=== PATIENT | male | born 1950 | race Caucasian/White ===

== ENCOUNTER 2018-07-06 19:41 | Emergency (ER) | payer OTHER ==
[2018-07-06 20:40] LABS: Absolute Lymphocytes (CBC) 2.2 K/uL (0.7-4.9); Absolute Monocytes 0.7 K/uL (0.1-1.3); Absolute Neutrophil 5.2 K/uL (1.8-8.0); Basophils % 0.9 % (0-1.3); Eosinophils % 1.2 % (0-4.4); Hematocrit 40.9 % (39.6-49.0); Lymphocytes % 26.8 % (15.3-44.8); MCH 30.1 pg (27.0-35.0); MCV 87.9 fL (80-100); MPV 7.4 fL (7.6-11.3); Monocytes % 8.8 % (3.3-12.3); RBC Red Blood Cell Count 4.66 M/uL (4.33-5.43)
[2018-07-06 20:58] LABS: Albumin 3.5 g/dL (3.4-5.0); Bilirubin Direct 0.1 mg/dL (0-0.2); Bilirubin Total 0.3 mg/dL (0.2-1.0); Potassium 4.1 mmol/L (3.5-5.1); Protein, Total 7.1 g/dL (6.4-8.2)
--- NOTE | 2018-07-06 21:34 | ER ---
Nurse's Notes [facility] Name: Korey Jeffers Age: 68 yrs Sex: Male : 1950 Arrival Date: 07/06/2018 Time: 19:44 Bed 8 Private MD: Diagnosis: Uncontrolled Hypertension;medication Non-compliance Presentation: 07/06 19:50 Presenting complaint: Patient states: that he went to the eye doctor today for pre-op fc for cataract surg and was told his bp was too high. It was 200/87. Pt goes to [place] and has no regular family dr. Has taken no medications in 2 years because he could not afford them. Transition of care: patient was not received from another setting of care. Onset of symptoms was July 06, 2018. Risk Assessment: Do you want to hurt yourself or someone else? Patient reports no desire to harm self or others. Initial Sepsis Screen: Does the patient meet any 2 criteria? No. Patient's initial sepsis screen is negative. Does the patient have a suspected source of infection? No. Patient's initial sepsis screen is negative. Care prior to arrival: None. 19:50 Method Of Arrival: Ambulatory fc 19:50 Acuity: JANICE 3 fc Historical: - Allergies: 20:03 No Known Allergies; fc - Home Meds: 20:03 None [Active]; fc - PMHx: 20:03 Hypertension; High Cholesterol; Myocardial infarction; Cataracts; fc - PSHx: 20:03 CABG; fc - Immunization history:: Last tetanus immunization: unknown, Flu vaccine is up to date. - Social history:: Smoking status: Patient uses tobacco products, smokes one pack cigarettes per day. Patient uses alcohol, occasionally. - Ebola Screening: : Patient negative for fever greater than or equal to 101.5 degrees Fahrenheit, and additional compatible Ebola Virus Disease symptoms Patient denies exposure to infectious person Patient denies travel to an Ebola-affected area in the 21 days before illness onset. - Family history:: not pertinent. - Hospitalizations: : No recent hospitalization is reported. Screenin:50 Abuse screen: Denies threats or abuse. Nutritional screening: No deficits noted. fc Tuberculosis screening: No symptoms or risk factors identified. Fall Risk None identified. Assessment: 20:02 General: Appears in no apparent distress. slender, well groomed, Behavior is calm, bb cooperative. Pain: Denies pain. Neuro: Level of Consciousness is awake, alert, obeys commands, Oriented to person, place, time, situation. Cardiovascular: Heart tones S1 S2 present Capillary refill < 3 seconds Patient's skin is warm and dry. Pulses are all present. Edema is absent. Respiratory: Airway is patent Respiratory effort is even, unlabored, Respiratory pattern is regular, Breath sounds are clear bilaterally. GI: No deficits noted. No signs and/or symptoms were reported involving the gastrointestinal system. Derm: Skin is pink, warm \T\ dry. Musculoskeletal: Circulation, motion, and sensation intact. 21:50 Reassessment: No changes from previously documented assessment. Patient and/or family tl1 updated on plan of care and expected duration. Pain level reassessed. Patient is alert, oriented x 3, equal unlabored respirations, skin warm/dry/pink. prescriptions discussed. Patient verbalized understanding. Vital Signs: 19:50 BP 196 / 107; Pulse 89; Resp 18; Temp 99.1(O); Pulse Ox 97% on R/A; Weight 68.04 kg fc (R); Height 5 ft. 7 in. (170.18 cm) (R); Pain 0/10; 20:52 BP 167 / 94; Pulse 84; Resp 18; Pulse Ox 97% on R/A; Pain 0/10; tl1 21:49 BP 180 / 91; Pulse 84; Resp 17; Temp 98.8; Pulse Ox 100% ; Pain 0/10; tl1 19:50 Body Mass Index 23.49 (68.04 kg, 170.18 cm) Kwame Coma Score: 20:02 Eye Response: spontaneous(4). Verbal Response: oriented(5). Motor Response: obeys bb commands(6). Total: 15. ED Course: 19:44 Patient arrived in ED. ds1 19:50 Arm band placed on Patient placed in an exam room, on a stretcher. fc 19:50 Patient has correct armband on for positive identification. Placed in gown. Bed in low fc position. Call light in reach. 19:57 Konrad Herrera MD is Attending Physician. wa 20:01 Tosha Mendez RN is Primary Nurse. bb 20:01 Triage completed. fc 20:02 personnel monitor on. Pulse ox on. NIBP on. Warm blanket given. bb 20:40 No provider procedures requiring assistance completed. Inserted saline lock: 20 gauge tl1 in right antecubital area, using aseptic technique. Blood collected. 21:50 IV discontinued, intact, bleeding controlled, No redness/swelling at site. Pressure tl1 dressing applied. Administered Medications: No medications were administered Outcome: 21:33 Discharge ordered by . jasmin 21:51 Discharged to home ambulatory, with family. tl1 21:51 Condition: good 21:51 Discharge instructions given to patient, family, Instructed on discharge instructions, follow up and referral plans. medication usage, Demonstrated understanding of instructions, follow-up care, medications, Prescriptions given X 4. 21:52 Patient left the ED. tl1 Signatures: Zandra Novoa RN RN Nancy Sparks ds1 Tosha Mendez RN RN Nimo Fulton RN RN tl1 Konrad Herrera MD MD wa
--- NOTE | 2018-07-06 21:34 | EDPHYS ---
Physician Documentation [facility] Name: Korey Jeffers Age: 68 yrs Sex: Male : 1950 Arrival Date: 07/06/2018 Time: 19:44 Bed 8 Private MD: ED Physician Konrad Herrera HPI: 07/06 21:25 This 68 yrs old Male presents to ER via Ambulatory with complaints of High mt Blood Pressure. 21:25 The patient has elevated blood pressure and discovered this at a physician's office, mt and sent to the emergency department for evaluation, h/o HTN. has not taken any meds since 2 yrs. states [facility] cannot afford meds. denies RANDLE, dizziness, CP, SOB, extremity swelling or blood in urine. was told to get checked when went for screen with the eye doctor for cataract surgery. wouldn't even had come if his son did not drag him here. states he feels fine. denies all ROS. Onset: The symptoms/episode began/occurred many years. Modifying factors: The symptoms are aggravated by none, The symptoms are alleviated by none. Associated signs and symptoms: The patient has no apparent associated signs or symptoms. Severity of symptoms: At its worst the blood pressure was 200 mm Hg, in the emergency department the blood pressure is 167/94. The patient has experienced similar episodes in the past, h/o HN. non-compliant with his meds. The patient has been recently seen by a physician: [facility]. Historical: - Allergies: 20:03 No Known Allergies; fc - Home Meds: 20:03 None [Active]; fc - PMHx: 20:03 Hypertension; High Cholesterol; Myocardial infarction; Cataracts; fc - PSHx: 20:03 CABG; fc - Immunization history:: Last tetanus immunization: unknown, Flu vaccine is up to date. - Social history:: Smoking status: Patient uses tobacco products, smokes one pack cigarettes per day. Patient uses alcohol, occasionally. - Ebola Screening: : Patient negative for fever greater than or equal to 101.5 degrees Fahrenheit, and additional compatible Ebola Virus Disease symptoms Patient denies exposure to infectious person Patient denies travel to an Ebola-affected area in the 21 days before illness onset. - Family history:: not pertinent. - Hospitalizations: : No recent hospitalization is reported. ROS: 21:30 Constitutional: Negative for fever, chills, and weight loss, Eyes: Negative for injury, wa pain, redness, and discharge, ENT: Negative for injury, pain, and discharge, Neck: Negative for injury, pain, and swelling, Cardiovascular: Negative for chest pain, palpitations, and edema, Respiratory: Negative for shortness of breath, cough, wheezing, and pleuritic chest pain, Abdomen/GI: Negative for abdominal pain, nausea, vomiting, diarrhea, and constipation, Back: Negative for injury and pain, : Negative for injury, bleeding, discharge, and swelling, MS/Extremity: Negative for injury and deformity, Skin: Negative for injury, rash, and discoloration, Neuro: Negative for headache, weakness, numbness, tingling, and seizure, Psych: Negative for depression, anxiety, suicide ideation, homicidal ideation, and hallucinations. 21:30 All other systems are negative. Exam: 21:30 Constitutional: This is a well developed, well nourished patient who is awake, alert, wa and in no acute distress. Head/Face: Normocephalic, atraumatic. Eyes: Pupils equal round and reactive to light, extra-ocular motions intact. Lids and lashes normal. Conjunctiva and sclera are non-icteric and not injected. Cornea within normal limits. Periorbital areas with no swelling, redness, or edema. ENT: Nares patent. No nasal discharge, no septal abnormalities noted. Tympanic membranes are normal and external auditory canals are clear. Oropharynx with no redness, swelling, or masses, exudates, or evidence of obstruction, uvula midline. Mucous membranes moist. Neck: Trachea midline, no thyromegaly or masses palpated, and no cervical lymphadenopathy. Supple, full range of motion without nuchal rigidity, or vertebral point tenderness. No Meningismus. Chest/axilla: Normal chest wall appearance and motion. Nontender with no deformity. No lesions are appreciated. Cardiovascular: Regular rate and rhythm with a normal S1 and S2. No gallops, murmurs, or rubs. Normal PMI, no JVD. No pulse deficits. Respiratory: Lungs have equal breath sounds bilaterally, clear to auscultation and percussion. No rales, rhonchi or wheezes noted. No increased work of breathing, no retractions or nasal flaring. Abdomen/GI: Soft, non-tender, with normal bowel sounds. No distension or tympany. No guarding or rebound. No evidence of tenderness throughout. Back: No spinal tenderness. No costovertebral tenderness. Full range of motion. Skin: Warm, dry with normal turgor. Normal color with no rashes, no lesions, and no evidence of cellulitis. MS/ Extremity: Pulses equal, no cyanosis. Neurovascular intact. Full, normal range of motion. Neuro: Awake and alert, GCS 15, oriented to person, place, time, and situation. Cranial nerves II-XII grossly intact. Motor strength 5/5 in all extremities. Sensory grossly intact. Cerebellar exam normal. Normal gait. Psych: Awake, alert, with orientation to person, place and time. Behavior, mood, and affect are within normal limits. Vital Signs: 19:50 BP 196 / 107; Pulse 89; Resp 18; Temp 99.1(O); Pulse Ox 97% on R/A; Weight 68.04 kg fc (R); Height 5 ft. 7 in. (170.18 cm) (R); Pain 0/10; 20:52 BP 167 / 94; Pulse 84; Resp 18; Pulse Ox 97% on R/A; Pain 0/10; tl1 21:49 BP 180 / 91; Pulse 84; Resp 17; Temp 98.8; Pulse Ox 100% ; Pain 0/10; tl1 19:50 Body Mass Index 23.49 (68.04 kg, 170.18 cm) Kwame Coma Score: 20:02 Eye Response: spontaneous(4). Verbal Response: oriented(5). Motor Response: obeys bb commands(6). Total: 15. MDM: 19:57 Patient medically screened. mt 21:31 Differential diagnosis: HTN. quit his meds 2 yrs ago. smokes cigs. has not seen a doc wa in several months. will check kidney fxn. will re-start his meds and give close f/u. no indication for STAT reduction in BP. Data reviewed: vital signs, nurses notes. Test interpretation: by ED physician or midlevel provider: nml cbc. nml CMP. 07/06 20:17 Order name: Basic Metabolic Panel; Complete Time: 21: mt 07/06 20:17 Order name: CBC with Diff; Complete Time: 21:07 mt 07/06 20:17 Order name: SIDDHARTHA's; Complete Time: : mt Administered Medications: No medications were administered Disposition: 07/06/18 21:33 Discharged to Home. Impression: Uncontrolled Hypertension, medication Non-compliance. - Condition is Stable. - Discharge Instructions: Hypertension, [id number]. - Prescriptions for Lisinopril 10 mg Oral Tablet - take 1 tablet by ORAL route once daily; 90 tablet. Hydrochlorothiazide 12.5 mg Oral Capsule - take 1 tablet by ORAL route once daily; 90 tablet. Metoprolol Tartrate 25 mg Oral Tablet - take 1 tablet by ORAL route 2 times per day with a meal; 180 tablet. simvastatin 20 mg Oral tablet - take 1 tablet by ORAL route once daily in the evening; 90 tablet. - Medication Reconciliation Form, Thank You Letter, Antibiotic Education, Prescription Opioid Use form. - Follow up: Private Physician; When: 5 - 6 days; Reason: Recheck today's complaints. - Problem is chronic. - Symptoms are unchanged. - Notes: please take your medication as prescribed. follow up with your doctor for further evaluation within 1 week. return to ER immediately if you develop any worrisome concerns. quit smoking cigarettes Signatures: Dispatcher [employer] EDMS Zandra Novoa RN RN Nimo Cheng RN RN tl1 Konrad Herrera MD MD wa Corrections: (The following items were deleted from the chart) 21:52 21:33 07/06/2018 21:33 Discharged to Home. Impression: Uncontrolled Hypertension; tl1 medication Non-compliance. Condition is Stable. Forms are Medication Reconciliation Form, Thank You Letter, Antibiotic Education, Prescription Opioid Use. Follow up: Private Physician; When: 5 - 6 days; Reason: Recheck today's complaints. Problem is chronic. Symptoms are unchanged. wa
== END 2018-07-06 21:52 | disposition home or self-care (01) ==
LOC: ER 19:41
DX: I10 Essential (primary) hypertension (principal); Z91.14 Patient's other noncompliance with medication regimen; F17.210 Nicotine dependence, cigarettes, uncomplicated; Z95.1 Presence of aortocoronary bypass graft; I25.2 Old myocardial infarction
CPT/HCPCS: 36415; 80048; 80076; 85025; 99284

== ENCOUNTER 2023-05-01 09:01 | Inpatient (IN) | payer OTHER ==
[2023-04-29 14:57] LABS: Potassium 4.5 mEq/L (3.5-5.1)
--- NOTE | 2023-04-30 15:08 | EKG ---
Test Date: 2023-04-29 Test Time: 14:28:57 Surgical Services Assistant: SUZETTE MEASUREMENT RESULTS: Intervals: Rate: 71 IL: 182 QRSD: 78 QT: 370 QTc: 402 [place]: P: 69 IL: 182 QRS: 48 T: 40 INTERPRETIVE STATEMENTS: Sinus rhythm with occasional premature ventricular complexes Otherwise normal ECG Compared to ECG 04/08/1998 05:52:00 Ventricular premature complex(es) now present Sinus bradycardia no longer present T-wave abnormality no longer present Electronically Signed On 04-30-23 15:05:29 CDT by Jeff Larose
[2023-05-01] MEDS ORDERED: Ringers Lactate 1,000 ML IV ONE (09:36)
[2023-05-01] MEDS ORDERED: DEXMEDETOMIDINE HCL 200 MCG/2 ML VIAL ONE (10:07)
[2023-05-01] MEDS ORDERED: propofoL 200 MG/20 ML VIAL IV ONE (11:55)
[2023-05-01] MEDS ORDERED: ROCURONIUM 50 MG/5 ML VIAL IV ONE (11:56)
[2023-05-01] MEDS ORDERED: FENTANYL CITR 100 MCG/2 ML ONE (11:56)
[2023-05-01] MEDS ORDERED: EPHEDRINE SULF 50 MG/ML VIAL ONE (11:59)
[2023-05-01] MEDS ORDERED: EPINEPHRINE/PF 1 MG/ML AMP ONE ×2 (12:10→13:07)
[2023-05-01] MEDS ORDERED: LIDOCAINE HCL/EPINEPHRINE 20 ML MDV ONE (12:11)
[2023-05-01] MEDS ORDERED: ONDANSETRON 4 MG/2 ML VIAL ONE (12:28)
[2023-05-01] MEDS: CEFAZOLIN SODIUM 1 GM/VIAL ONE ×2 (12:35→12:42)
[2023-05-01] MEDS ORDERED: ACETAMINOPHEN 500 MG TAB PO PRN (13:23)
--- NOTE | 2023-05-01 13:42 | P.OP ---
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 The anterior neck was cleaned with alcohol and injected with 5ml of 1% lidocaine with epinephrine. The patient was monitored, pre-oxygenated and given mild sedation by anesthesia in order to maintain conscious management and patency of the airway and spontaneous respiration through the initial portions of the surgery. The neck was prepped and draped in a sterile fashion. The oxygen was discontinued. The laryngeal landmarks were easily palpable. There were prominent suprasternal pulsations. A 1.5-2cm incision was made through the skin and subcutaneous tissues using Bovie cautery about 1cm below the cricoid cartilage. The strap muscles were identified and retracted laterally. Add itional injection of lidocaine was made in to the neck and thyroid tissues due to patient discomfort. The isthmus of the thyroid gland was encountered and divided with Bovie cautery with thyroid tissue retracted laterally with [place] retractors. The pretracheal fascia was then visualized and final preparations with the patient and anesthesia team. The trachea was incised between the first and second tracheal rings due to the high riding innominate artery. A cricoid hook was used to elevate the superior aspect of the incision. Suctioning of blood and secretions from the trachea was performed and a 6 Shiley cuffed tracheotomy was passed atraumatically through the incision. The obturator was removed and replaced with the inner cannula - respiratory secretions were suctioned from the tube and the patient was then sedated to a level of general anesthesia. The tracheotomy flange was then secured to the skin in a 4 point fashion and the umbilical tie was placed around the neck. This portion of the procedure was completed and the drapes were removed to allow access to the patients mouth. An exam under anesthesia is performed with the following findings: no lesions of lips, buccal mucosa, gums or oral tongue or palate. Endendulous. With palation of the base of tongue and vallecular space, there is a 3cm hard mass. A Hollie laryngoscope is used to perform a direct laryngoscopy. The vallecular space is filled with firm rounded red tumor which is firm and not friable. The laryngeal surface of the epiglottis demonstrates moderate exophytic and friable tumor. Telescope is used for magnification and photodocumentation. The aryenoids, false and true vocal folds and subglottis appear clear. The upper trachea and trachesotomy tube are visualized. Biopsy is collected from the laryngeal surface of the epiglottis using large cup forceps. This is sent for permanent section only. Bleeding is controlled with direct pressure from a Ray-skye. After several minutes, the gauze is removed and the area appears hemostatic. The laryngoscope is removed and the patient to turn over to the care of General Surgery for EGD with PEG placement as planned. Complications: None Implants: 6.0 cuffed Shiley Fluids & blood products: crystalloid, see anesthesia record Transferred to: Other (Care of General Surgery for feeding tube placement) Condition: Serious
[2023-05-01] MEDS: HYDROMORPHONE HCL 1 MG/ML INJ ONE ×4 (14:29→14:54)
--- OUTSIDE RECORDS SUMMARY | 2023-05-01 16:07 | XMS REPORT | Continuity of Care Document ---
:1950 Author Organization [facility] t Address [address] [place] [address] [place] [id number] Care Team Providers Name Role Phone Nael Porter MD Attending Clinician Doctor Unassigned, Horatio Attending Clinician Unavailable 1, Adc Lab Attending Clinician Unavailable Nael Porter MD Admitting Clinician Payers Payer Name Policy Type Policy Number Effective Date Expiration Date S ource Problems This patient has no known problems. Allergies, Adverse Reactions, Alerts This patient has no known allergies or adverse reactions. Social History Social Habit Start Date Stop Date Quantity Comments Source Alcohol intake [facility] History [facility] o f Alcohol Binge [facility] Sex Assigned At Universit y of [facility] History of tobacco Cigarette Smoker [facility] use [facility] Cigarettes smoked 2019-03-31 2019-03-31 Univers ity of current (pack per 00:00:00 00:00:00 [facility] ) - Reported Branch History [facility] 2019-03-28 2019-03-28 2 [place] o f Alcohol Frequency 00:00:00 00:00:00 [facility] History [facility] 2019-03-28 2019-03-28 2 [place] o f Alcohol Std Drinks 00:00:00 00:00:00 [facility] Alcohol Comment 2019-03-28 2019-03-28 Approx. 3-4 Universi ty of 00:00:00 00:00:00 beers monthly [facility] Smoking Status Start Date Stop Date Source Unknown if ever smoked [facility] Current every day smoker 2019-03-31 00:00:00 Uni versity of [facility] Medications Ordered Filled Start Stop Current Ordering Indication Dosage Frequency Signature Comments Components Source Medication Medication Date Date Medication? Clinician (SIG) Name Name simvastatin Yes 40mg Take 40 mg Univers 40 mg 8-29 by mouth ity of tablet 15:50: at [place] [address] bedtime. Medical Branch aspirin 81 2019-0 Yes 81mg Take 81 mg U nivers mg EC 8-29 by mouth ity of tablet 15:50: daily. [place] [address] Medical Branch metoprolol 20190 Yes 25mg Take 25 mg U nivers tartrate 25 8-29 by mouth 2 it y of mg tablet 15:50: (two) [place] [address] times Medical daily. Branch hydroCHLORO 2019 Yes 12.5mg Take 12.5 Univers thiazide 8-29 mg by ity of 12.5 mg 15:50: mouth [place] capsule 39 daily. Medical Branch amLODIPine Yes 10mg Take 10 mg U nivers 10 mg 8-29 by mouth ity of tablet 15:50: daily. [place] [address] Medical Branch simvastatin 2019-0 Yes 40mg Take 40 mg Univers 40 mg 8-29 by mouth ity of tablet 15:50: at [place] [address] bedtime. Medical Branch aspirin 81 0 Yes 81mg Take 81 mg U nivers mg EC 8-29 by mouth ity of tablet 15:50: daily. [place] [address] Medical Branch metoprolol Yes 25mg Take 25 mg U nivers tartrate 25 8-29 by mouth 2 it y of mg tablet 15:50: (two) [place] [address] times Medical daily. Branch hydroCHLORO Yes 12.5mg Take 12.5 Univers thiazide 8-29 mg by ity of 12.5 mg 15:50: mouth [place] capsule 39 daily. Medical Branch amLODIPine Yes 10mg Take 10 mg U nivers 10 mg 8-29 by mouth ity of tablet 15:50: daily. [place] [address] Medical Branch tetracaine 2019-0 Yes PRN, Univers (PONTOCAINE 8 Starting ity of ) 0.5 % 12:49: Jaycee [place] ophthalmic 03/31/19 at Med ical drops 0749, [place] Until Discontinu ed, Routine, Intra-op water for 2018-0 Yes PRN, Univers irrigation 03-31 Starting ity o f irrigation 12:48: Jaycee [place] solution 03/31/19 at Medic al 0748, [place] Until Discontinu ed, Routine, Intra-op sodium 2018-0 Yes PRN, Univers chloride 03-31 Starting ity of (NS) 12:48: Jaycee [place] injection 00 03/31/19 at [facility] velvet 0748, Branch Until Discontinu ed, Routine, Intra-op neomycin-po Yes PRN, Univer s lymyxin-dex 03-31 Starting ity of amethasone 12:48: Jaycee [place] (MAXITROL) 00 03/31/19 at [facility] 3.5 0748, Branch mg/g-10,000 Until unit/g-0.1 Discontinu % ed, ophthalmic Routine, ointment Intra-op lidocaine-e Yes PRN, Univer s pinephrine 03-31 Starting ity o f (XYLOCAINE 12:48: Jaycee [place] W[facility] 2 0748, [place] %-1:200,000 Until injection Discontinu ed, Routine, Intra-op gentamicin Yes PRN, Univers injection 03-31 Starting ity of 12:47: Jaycee [place] 03/31/19 at [facility] 07, [place] Until Discontinu ed, AIDEN, Intra-op EPINEPHrine Yes PRN, Univ s (PF) 03-31 Starting ity of 1:1,000 (1 12:47: Jaycee [place] mg/mL) 03/31/19 at [facility] (ADRENALIN 0747, Branch (PF)) Until injection Discontinu ed, Routine, Intra-op DUOVISC Yes PRN, [facility] (DUOVISC 03-31 Starting ity of VISCO 12:47: Jaycee [place] ELASTIC) 3 03/31/19 at [facility] %-4 %(0.5 0747, Branch mL) 1 % Until (0.55 mL) Discontinu intraocular ed, injection Routine, Intra-op dexamethaso Yes PRN, Univer s ne 03-31 Starting ity of (DECADRON 12:47: Jaycee [place] PHOSPHATE) 03/31/19 at [facility] ica injection 0747, [place] Until Discontinu ed, Routine, Intra-op ceFAZolin Yes PRN, [facility] (ANCEF) 03-31 Starting ity of injection 12:46: Jaycee [place] 00 03/31/19 at [facility] 0746, [place] Until Discontinu ed, AIDEN, Intra-op bupivacaine 2019-0 Yes PRN, Univer s (preserv 03-31 Starting ity of free) 12:46: Jaycee [place] (SENSORCAIN 00 03/31/19 at Ma dical E [facility]) 0.75 0746, Branch % (7.5 Until mg/mL) Discontinu injection ed, Routine, Intra-op balanced 2018-0 Yes PRN, Univers salt irrig 03-31 Starting ity o f soln comb1 12:46: Jaycee [place] (BSS PLUS) 00 03/31/19 at [facility] ical ophthalmic 0746, Branch solution Until 500 mL bag Discontinu ed, Routine, Intra-op phenylephri 2019- No 1[drp] 1 Drop, Univers ne 03-31 Left Eye, ity of (HARSHA-SYNEPH 12:30: 13:04 Q10M, 3 [place]) 2.5 % 00 :00 doses, Medica l ophthalmic First dose Bra nch drops 1 on [place]cee Drop 03/31/19 at 0730, Last dose on Jaycee 03/31/19 at 0750, Routine, DSU Pre-op cyclopentol 2019- No 1[drp] 1 Drop, Univers ate 03-31 Left Eye, ity of (CYCLOGYL) 12:30: 13:04 Q10M, 3 [place] as 1 % 00 :00 doses, Medical ophthalmic First dose Bra nch drops 1 on [place] Drop 03/31/19 at 0730, Last dose on Jaycee 03/31/19 at 0750, Routine, DSU Pre-op tropicamide 2019- No 1[drp] 1 Drop, Univers (MYDRIACYL) 03-31 Left Eye, it y of 1 % 12:30: 13:04 Q10M, 3 [place] ophthalmic 00 :00 doses, Medical drops 1 First dose Branch Drop on Jaycee 03/31/19 at 0730, Last dose on Jaycee 03/31/19 at 0750, Routine, DSU Pre-op ketorolac 2019- No 1[drp] 1 Drop, Un oseas (ACULAR) 03-31 Left Eye, ity o f 0.5 % 12:30: 13:04 Q10M, 3 [place] ophthalmic 00 :00 doses, Medical solution 1 First dose Bra nch Drop on Jaycee 03/31/19 at 0730, Last dose on Jaycee 03/31/19 at 0750, Routine, DSU Pre-op
Reason for Non-Formul willi Use: SPECIFIC INDICATION FOR NONFORMULA RY PRODUCT
restaurant crew member approving Non-formul willi medication : NAEL PORTER lactated 2018- 500mL at 20 Univer s ringers IV 03-31 mL/hr, 500 it y of infusion 12:15: 12:43 mL, IV [place] 500 mL 00 :00 Infusion, Medical ONCE, 1 Branch dose, [place]e 03/31/19 at 0715, Routine, DSU Pre-op Vital Signs Vital Name Observation Time Observation Value Comments Source Systolic blood 2019-03-31 12:20:00 126 mm[Hg] Univer sity of pressure [facility] Diastolic blood 2019-03-31 12:20:00 84 mm[facility]Hg[facility] Heart rate 2019-03-31 12:20:00 55 /min [facility] Respiratory rate 2019-03-31 12:20:00 16 /min [facility] O[facility] saturation in 2019-03-31 12:20:00 98 /min [facility] blood by [facility] Pulse oximetry [place] Body height 2019-03-28 19:00:00 170.2 cm [facility] Body weight 2019-03-28 19:00:00 68.04 kg [facility] BMI 2019-03-28 19:00:00 23.49 kg/m2 [facility] Procedures Procedure Date / Time Performed Performing Clinician [facility] e DAY SURGERY - ADC 2019-03-31 05:01:00 Doctor Unassigned, No Univ ersity of [place] Name [facility] Branch Encounters Start End Encounter Admission Attending Care Care Encounter Source Date/Time Date/Time Type Type Clinicians Facility Department ID 2019-03-31 2019-03-31 [facility] [place] [facility] [id number] [facility] 07:13:00 10:00:00 Encounter Nael Christian [id number] ity of Christophe Mckee [id number] [facility] Surgical [id number] [facility] 071 Branch 2019-03-31 2019-03-31 Orders Doctor WENDY [id number] Univers 00:00:00 00:00:00 Only Unassigned, LUCILLE [id number] ity of [facility] [id number] [place] [id number] [facility] 009 Branch 2019-03-17 2019-03-17 Resaw Machine Operator 1, Adc Lab [facility] [id number] Univers 15:07:43 15:22:43 Visit Nael Porter 350.1.1 3.10 ity of [place] [id number] [facility] [id number] [facility] 353 Branch Results This patient has no known results.
--- NOTE | 2023-05-01 22:22 | RAD REPORT ---
EXAM DESCRIPTION: Tony Single View05/01/2023 3:32 pm CLINICAL HISTORY: tracheotomy and PEG placement COMPARISON: No comparisons TECHNIQUE: Portable AP view of the chest. FINDINGS: Tracheostomy tube in place. Sequelae of prior CABG. The lungs are clear. No pneumothorax or effusion. The cardiomediastinal contours are unremarkable. PACU in satisfactory position, with no evidence of extraluminal contrast upon contrast administration. Mild diffuse gaseous distention and mild stool burden along the visualized colon. IMPRESSION: As above.
[2023-05-02] MEDS: MORPHINE 2 MG/ML SYR IV PRN ×6 (01:47→19:05)
[2023-05-02] MEDS: ENOXAPARIN 40 MG/0.4 ML SQ SCH (08:46)
[2023-05-02] MEDS: METOPROLOL XL 25 MG TAB PO SCH ×2 (09:00→17:36)
[2023-05-02] MEDS ORDERED: HOME MED 1 EA UNK (Hydrochlorothiazide [Hydrochlorothiazide] 12.5 MG Tablet) PO SCH (09:00)
[2023-05-02] MEDS ORDERED: HOME MED 1 EA UNK (Simvastatin [Simvastatin] 40 MG Tablet) PO SCH (09:00)
[2023-05-02] MEDS: hydroCHLOROthiazide 12.5 MG CAP PO SCH (13:11)
[2023-05-02] MEDS: AMLODIPINE 10 MG TAB PO SCH (13:16)
[2023-05-02 20:16] VITALS: BMI 17.6
[2023-05-02] MEDS: ATORVASTATIN 20 MG TAB PO SCH (21:14)
[2023-05-03] MEDS: MORPHINE 2 MG/ML SYR IV PRN ×4 (00:49→20:54)
[2023-05-03] MEDS: METOPROLOL XL 25 MG TAB PO SCH (06:00)
[2023-05-03] MEDS: ENOXAPARIN 40 MG/0.4 ML SQ SCH (08:09)
[2023-05-03] MEDS: hydroCHLOROthiazide 12.5 MG CAP PO SCH (08:09)
[2023-05-03] MEDS: AMLODIPINE 10 MG TAB PO SCH (08:09)
[2023-05-03] MEDS: HYDROCOD 2.5mg-ACETAMIN 108mg/5mL Soln FT PRN ×2 (09:59→17:10)
--- NOTE | 2023-05-03 11:27 | P.PN ---
Date of Service: 05/02/23 POD1 s/p awake trach, DL w Bx by Real and PEG by Eliot. No overnight events. Pain at surgical sites improved with IV morphine. Currently NPO/NPT. Spoke with ST Thursday late afternoon who recommended MBS over bedside swallow due to trach and tumor. Patient also c/o dry mouth and requesting oral hydration NAD. VSS. Trach site with crusting and coughing up moderate thick secretions. Cuff deflated. Unable to phonate with finger occlusion due to inner canula design. Sutures and ties in place. Post-op CXR with no ptx, COPD changes, no mention of consolidations A/P: 1. Malnutrition: Anticipate starting tube feeds this evening. Dietian consult pending, likely Thursday. 2. Dysphagia: Plan MBS, hopefully on Thursday. OK for ice chips for mouth dryness, otherwise NPO. 3. Airway obstruction, tracheotomy: Spoke with nursing re: increasing frequency of trach care and suctioning to improve crusting. List of trach supplies for d/c home placed in paper chart. Nursing to begin trach care teaching in prep for d/c home. Anticipate first trach change on Thursday or Thursday. Plan for d.c home or Thu if all teaching, home health and supplies all confirmed/delivered. Patient will not require home oxygen. 4. Cough, productive: Will monitor degree of secretions for now. If not improving, consider suptum culture. Start Incentive Spirometry with trach. Up to chair today. 5. 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 Start VTE prophyaxis with Lovenox daily.
--- NOTE | 2023-05-03 11:41 | P.PN ---
Date of Service: 05/03/23 POD2 s/p awake trach, DL w Bx by Real and PEG by TRISTAN Mccabe 2. Was up to chair yesterday. No overnight events. Pain at surgical sites improved with IV morphine. Patient started on tube feeds at 10ml and develops abd discomfort in the combine operator while on 30ml/hr. Nursing notified to hold for 1 hour and restart but patient still having some discomfort and restarted at 10ml/hr. Mild tachypnea overnight on review of chart vitals NAD. VSS. Alert. Communicating with nodding and writing. Trach site janitorial cleaner but still coughing up moderate thick secretions. Cuff deflated. Unable to phonate with finger occlusion due to inner canula design. Sutures and ties in place. Abd soft, no acute tenderness, PEG in place with guaze sponge, no bleeding. A/P: 1. Malnutrition: Movie Theater Usher reccs noted. Will monitor tolerance of tube feeds. Discussed with patient that end goal is for bolus feedings but will start with continuous feeds for now to build up to this in regards to tolerance of full calorie intake. 2. Dysphagia: Plan MBS, hopefully on Thursday. OK for ice chips for mouth dryness, otherwise NPO. 3. Airway obstruction, tracheotomy: Discussed cuffed vs uncuffed trach with patient. Anticipate first trach change to cuffless on Thursday or Thursday. Plan for d.c home or Thu if all teaching, home health and supplies all confirmed/delivered. Patient will not require home oxygen. Would appreciate [facility] for PMV if available 4. Cough, productive: Will monitor degree of secretions for now. If not improvin g, consider suptum culture. Start Incentive Spirometry with trach. 5. 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 Continue VTE prophyaxis with Lovenox daily. Discussed with patient, son and sister that treatment typically includes radiation with additional of chemotherapy depending on the stage of tumor and overall condition of the patient. He would like to stay locally for treatment and defers referral to the [facility]. We discussed that he will be seen on an outpatient basis by Pool Rosas and Jose Miguel for further treatment planning. Discussed that CT neck and PET will be needed for staging and treatment planning. PET is done on outpatient basis. Will discussed with Alison regarding need for CT neck with contrast in additional to PET. 6. Pain management: Start Lortab solution per tube PRN pain. Continue IV Morphine PRN.
[2023-05-03] MEDS: METOPROLOL TAR 25 MG TAB PO SCH (17:10)
[2023-05-03] MEDS: JEVITY 1.5 CAL LIQUID 1,000 ML BOT RTH SCH (17:23)
[2023-05-03] MEDS: ATORVASTATIN 20 MG TAB PO SCH (20:52)
[2023-05-04] MEDS: MORPHINE 2 MG/ML SYR IV PRN ×4 (00:39→19:49)
[2023-05-04 05:08] LABS: Absolute Lymphocytes (CBC) 1.2 K/uL (0.7-4.9); Lymphocytes % 14.2 % (15.3-44.8); MCV 82.9 fL (80-100); MPV 6.7 fL (7.6-11.3); Platelets 415 thou/uL (152-406); RBC Red Blood Cell Count 4.11 M/uL (4.33-5.43)
[2023-05-04] MEDS: METOPROLOL TAR 25 MG TAB PO SCH ×2 (06:00→18:19)
[2023-05-04] MEDS: HYDROCOD 2.5mg-ACETAMIN 108mg/5mL Soln FT PRN ×2 (07:28→16:25)
[2023-05-04] MEDS ORDERED: ALBUTEROL 2.5 MG/3 ML NEB SOL NEB PRN ×2 (07:38→16:00)
--- NOTE | 2023-05-04 07:50 | P.PN ---
Date of Service: 05/04/23 POD3 s/p awake trach, DL w Bx by Real and PEG by TRISTAN Mccabe 3. No overnight events. Trach secretions are less and thinner per nursing. Complaints of abd fullness and tasting tube feeds in the back of his throat. No flatuence or BM per patient. NAD. VSS. Alert. Communicating with nodding and writing. Trach site die cleaner without active secretions today. Cuff deflated. Unable to phonate with finger occlusion due to inner canula design. Sutures and ties in place. Abd soft, no acute tenderness, PEG in place with guaze sponge, no bleeding. A/P: 1. Malnutrition: Sdv Pilot/Navigator/Dds Operator reccs noted. Will monitor tolerance of tube feeds, currently holding at 20ml/hr due to symptoms of abd fullness. Dr Molina's office is already arranging Home Health for tube feeds 2. Dysphagia: Plan MBS, hopefully today to evaluate for safety of PO diet. OK for ice chips for mouth dryness, otherwise NPO. 3. Airway obstruction, tracheotomy: Anticipate first trach change to cuffless on Thursday, supplies ordered to beside. Plan for d/c home or Thu if all teaching, home health and supplies all confirmed/delivered. Patient will not require home oxygen. Would appreciate [facility] for PMV if available 4. Cough, productive: Continue Incentive Spirometry with trach. Due to improving secretions, add albuterol nebulizer PRN. 5. 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 Continue VTE prophyaxis with Lovenox daily. Conferred with Alison and will plan for staging imaging on outpatient basis in conjuction with XRT planning to limit excess radiation exposure. 6. Pain management: Start Lortab solution per tube PRN pain. Continue IV Morphine PRN. 7. Possible ileus - will d/w GenSurg
[2023-05-04] MEDS: AMLODIPINE 10 MG TAB PO SCH (08:03)
[2023-05-04] MEDS: hydroCHLOROthiazide 12.5 MG CAP PO SCH (08:04)
[2023-05-04] MEDS: ENOXAPARIN 40 MG/0.4 ML SQ SCH (08:04)
[2023-05-04] MEDS: Pantoprazole (granules) 40 MG/BLIST PACKET FT SCH (10:09)
--- NOTE | 2023-05-04 18:18 | RAD REPORT ---
EXAM DESCRIPTION: RAD - Barium Swallow Modified - 05/04/2023 2:51 pm CLINICAL HISTORY: New tracheostomy placement COMPARISON: None. TECHNIQUE: The patient was given liquid, semi-solid and solid forms of barium. Lateral view fluorosc opic imaging was performed in conjunction with speech pathology service. Fluoro time: 1.49 minutes. FINDINGS: Mitchell aspiration noted with thin liquids, nectar thick liquids, and pudding, with no subse quent cough. Laryngeal penetration noted with multiple consistencies, not cleared. IMPRESSION: Mitchell aspiration and laryngeal penetration with multiple consistencies. Please refer to speech pathologist's report for additional details.
[2023-05-04] MEDS: JEVITY 1.5 CAL LIQUID 1,000 ML BOT RTH SCH (18:21)
[2023-05-04] MEDS: ATORVASTATIN 20 MG TAB PO SCH (19:49)
[2023-05-05] MEDS: METOPROLOL TAR 25 MG TAB PO SCH ×2 (06:00→18:00)
[2023-05-05] MEDS: Pantoprazole (granules) 40 MG/BLIST PACKET FT SCH (06:30)
--- NOTE | 2023-05-05 08:41 | P.PN ---
Date of Service: 05/05/23 POD4 s/p awake trach, DL w Bx by Real and PEG by TRISTAN Mccabe 4. No overnight events. Trach secretions thickened and more copious per nursing. Patient tolerating TF at 45ml/hr since this AM. Starting to have some flatuence. NAD. VSS. Alert. Communicating with nodding and writing. Trach site clean but thick globus of yellow-brown mucus in the trach collar today. Cuff deflated. Unable to phonate with finger occlusion due to inner canula design. Sutures and ties in place. MBS and ST reccs reviewed A/P: 1. Malnutrition: Wallpaper Inspector And Shipper reccs noted. Will monitor tolerance of tube feeds. Request dietian assistance to transition to bolus feeds. 2. Dysphagia: Discussed MBS recommendations with patient. OK for ice chips for mouth dryness, otherwise NPO. Will plan for repeat MBS following definitive XRT/Chemo for H&N Cancer and reassess. 3. Airway obstruction, tracheotomy: Trach change this morning by Real to 6.0 cuffless trach and well tolerated. Patient noted text from [employer] regarding insurance verification issues and instruction to called [phone]. I attempted to call but their hours are 10am-6pm EST so will need to FU later. 4. Cough, productive: Continue Incentive Spirometry with trach. Sputum culture today. Consider ABx if significant bacterial load. 5. 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 Continue VTE prophyaxis with Lovenox daily. Plan for staging imaging on outpatient basis in conjuction with XRT planning to limit excess radiation exposure. 6. Pain management: Stable, continue current medications
[2023-05-05] MEDS: AMLODIPINE 10 MG TAB PO SCH (09:00)
[2023-05-05] MEDS: HYDROCOD 2.5mg-ACETAMIN 108mg/5mL Soln FT PRN ×3 (09:09→20:41)
[2023-05-05] MEDS: ENOXAPARIN 40 MG/0.4 ML SQ SCH (09:09)
[2023-05-05] MEDS: hydroCHLOROthiazide 12.5 MG CAP PO SCH (09:09)
[2023-05-05] MEDS: JEVITY 1.5 CAL LIQUID 1,000 ML BOT FT SCH ×3 (13:00→20:42)
[2023-05-05] MEDS: ATORVASTATIN 20 MG TAB PO SCH (20:41)
[2023-05-06] MEDS: Pantoprazole (granules) 40 MG/BLIST PACKET FT SCH (04:42)
[2023-05-06] MEDS: HYDROCOD 2.5mg-ACETAMIN 108mg/5mL Soln FT PRN ×2 (04:42→19:32)
[2023-05-06] MEDS: METOPROLOL TAR 25 MG TAB PO SCH ×2 (04:42→18:00)
[2023-05-06] MEDS: JEVITY 1.5 CAL LIQUID 1,000 ML BOT FT SCH ×4 (09:00→21:00)
[2023-05-06] MEDS: AMLODIPINE 10 MG TAB PO SCH (09:00)
[2023-05-06] MEDS: hydroCHLOROthiazide 12.5 MG CAP PO SCH (09:00)
[2023-05-06] MEDS: ENOXAPARIN 40 MG/0.4 ML SQ SCH (09:00)
[2023-05-06] MEDS: ATORVASTATIN 20 MG TAB PO SCH (21:42)
[2023-05-07 03:02] LABS: Absolute Lymphocytes (CBC) 1.2 K/uL (0.7-4.9); Hematocrit 33.6 % (39.6-49.0); Lymphocytes % 18.2 % (15.3-44.8); MCV 82.3 fL (80-100); MPV 6.8 fL (7.6-11.3); Platelets 455 thou/uL (152-406); RBC Red Blood Cell Count 4.08 M/uL (4.33-5.43)
[2023-05-07] MEDS: METOPROLOL TAR 25 MG TAB PO SCH ×2 (04:27→17:19)
[2023-05-07] MEDS: Pantoprazole (granules) 40 MG/BLIST PACKET FT SCH (05:41)
[2023-05-07] MEDS: HYDROCOD 2.5mg-ACETAMIN 108mg/5mL Soln FT PRN ×2 (06:12→20:06)
--- NOTE | 2023-05-07 07:33 | P.PN ---
Date of Service: 05/06/23 POD4=5 s/p awake trach, DL w Bx by Real and PEG by TRISTAN Mccabe 5. No overnight events. Trach secretions remain thickened and copious per nursing. Sputum culture was collected but never sent to labs. PT in room to begin evaluation. NAD. VSS. Alert. Communicating with nodding and writing. Trach site clean. A/P: 1. Malnutrition: Machine Tester reccs noted. Will monitor tolerance of tube feeds. Appreciate dietian assistance to transition to bolus feeds. 2. Dysphagia: OK for ice chips for mouth dryness, otherwise NPO. Will plan for repeat MBS following definitive XRT/Chemo for H&N Cancer and reassess. 3. Airway obstruction, tracheotomy: Working with 4. Cough, productive: Continue Incentive Spirometry with trach. Sputum culture today. Consider ABx if significant bacterial load. 5. 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 Continue VTE prophyaxis with Lovenox daily. Plan for staging imaging on outpatient basis in conjuction with XRT planning to limit excess radiation exposure. 6. Pain management: Stable, continue current medications
[2023-05-07] MEDS: hydroCHLOROthiazide 12.5 MG CAP PO SCH (10:25)
[2023-05-07] MEDS: AMOX/K CLAV 600 MG/5 ML ORAL SUSP (75 ML BTL) FT SCH ×2 (10:25→20:06)
[2023-05-07] MEDS: ENOXAPARIN 40 MG/0.4 ML SQ SCH (10:26)
[2023-05-07] MEDS: JEVITY 1.5 CAL LIQUID 1,000 ML BOT FT SCH ×4 (10:26→20:06)
[2023-05-07] MEDS: AMLODIPINE 10 MG TAB PO SCH (10:26)
--- NOTE | 2023-05-07 14:32 | P.PN ---
Date of Service: 05/07/23 POD 6 s/p awake trach, DL w Bx by Real and PEG by TRISTAN Mccabe 6. Moved to floor. Trach secretions remain thickened and copious. Spoke with son who reports that suction and trach supplies were delivered this afternoon to patient's home and that delivery of feeding tube supplies and hospital bed is expected to be delivered tomorrow around 3PM. Patient and family do not yet appear comfortable with tube feeding and trach care/suction to be safe at home NAD. VSS. Alert. Communicating with nodding and writing. Trach site with moist guaze sponge. After removal of inner cannula, patient attempted phonation with finger occlusion but resulted in cough up large amount of moderately thick yellow secretions Lab: Sputum cx with G+ pairs and chains, pending final results A/P: 1. Malnutrition: Weight Engineer reccs noted. Will monitor tolerance of tube feeds. Appreciate twisting machine operator assistance to transition to bolus feeds. 2. Dysphagia: OK for ice chips for mouth dryness, otherwise NPO. Will plan for repeat MBS following definitive XRT/Chemo for H&N Cancer and reassess. Spoke with son about results including aspiration and recommendation for NPO status due to risks of aspiration 3. Airway obstruction, tracheotomy: Working with DERRICK NAVA for arrangement of supplies. Confirmed HH set up for daily visits to start after discharge. Performed bedside teaching with patient to keep trach tie snug, remove and replace inner cannula and to change guaze sponge to prevent sin breakdown. Plan at least monthly ENT visit for trach change for foreseeable future. 4. Cough, productive: Start Augmentin via FT. Will follow cx for now 5. 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 Patient informed of results yesterday. Son informed of results via telephone today. [facility], outpatient staging to be ordered by [facility]. 6. Pain management: Stable, continue current medications. RadOnc can resume pain management after consultation. 7. Spoke with son about increased risk of depression in patient's with H&N Ca and strongly recommended monitoring for S&Sx. Contact Dr Noble for any concerns after discharge home.
[2023-05-07] MEDS: ATORVASTATIN 20 MG TAB PO SCH (20:06)
[2023-05-08] MEDS: HYDROCOD 2.5mg-ACETAMIN 108mg/5mL Soln FT PRN ×2 (04:27→18:29)
[2023-05-08] MEDS: Pantoprazole (granules) 40 MG/BLIST PACKET FT SCH (04:52)
[2023-05-08] MEDS: METOPROLOL TAR 25 MG TAB PO SCH ×2 (04:52→18:00)
[2023-05-08] MEDS: JEVITY 1.5 CAL LIQUID 1,000 ML BOT FT SCH ×4 (09:00→20:10)
[2023-05-08] MEDS: hydroCHLOROthiazide 12.5 MG CAP PO SCH (09:15)
[2023-05-08] MEDS: AMOX/K CLAV 600 MG/5 ML ORAL SUSP (75 ML BTL) FT SCH ×2 (09:15→20:09)
[2023-05-08] MEDS: ENOXAPARIN 40 MG/0.4 ML SQ SCH (09:15)
[2023-05-08] MEDS: AMLODIPINE 10 MG TAB PO SCH (09:15)
--- NOTE | 2023-05-08 12:30 | P.DS ---
Admission Date: 05/01/23 Discharge Date: 05/08/23 Primary Care Provider: Dr. Nelida Noble Disposition: ROUTINE DISCHARGE Discharge Condition: FAIR Reason for Admission: Airway obstruction, status post tracheostomy Procedures: Tracheostomy, direct laryngoscopy with biopsy, EGD with feeding tube placement by Dr. Molina Brief History of Present Illness: The patient presented to the outpatient ENT clinic with dysphagia and weight loss. His evaluation demonstrated a large and partially obstructive mass of the vallecular space and supraglottis with difficulty visualizing the airway. Recommendation was made for operative intervention including an awake tracheostomy followed by direct laryngoscopy and biopsy with feeding tube placement. The patient required admission following tracheostomy to allow for maturation of the stoma/fistula, arrangement of home health and supplies as well as patient/family teaching for tracheostomy care and feeding administration. Hospital Course: The patient was admitted postoperatively to the ICU where he was closely monitored. He did have persistent thick yellow respiratory secretions and a culture was collected. The patient was started on Augmentin through his feeding tube while culture results were pending. The patient was slowly advanced from continuous feeds to bolus feeds with early ileus which self resolved. The patient underwent tracheostomy tube exchange by Dr. Noble to a cuffless tube on postoperative day 4. On the day of discharge, the patient confirmed he felt comfortable with tracheostomy care. I discussed the risks of depression in patients with head neck cancer with the patient and encouraged him to seek assistance and help from family and friends as well as medical caregivers. The patient did not feel it was necessary to initiate medical therapy for depression at this time. Referral to radiation oncology and medical oncology was made for outpatient follow-up. Staging and imaging will be deferred to outpatient follow-up. 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 Vital Signs/Physical Exam: Temp Pulse Resp BP Pulse Ox 98.2 F 86 18 107/72 98 05/08/23 12:00 05/08/23 12:00 05/08/23 12:00 05/08/23 12:00 05/08/23 12:00 Laboratory Data at Discharge: WBC 6.40 thou/uL (4.3-10.9) 05/07/23 01:50 Hgb 11.4 g/dL (13.6-17.9) L 05/07/23 01:50 Hct 33.6 % (39.6-49.0) L 05/07/23 01:50 Plt Count 455 thou/uL (152-406) H 05/07/23 01:50 Sodium 134 mEq/L (136-145) L 04/29/23 14:27 Potassium 4.5 mEq/L (3.5-5.1) 04/29/23 14:27 BUN 17 mg/dL (7-18) 04/29/23 14:27 Creatinine 1.12 mg/dL (0.70-1.30) 04/29/23 14:27 Glucose 115 mg/dL (74-106) H 04/29/23 14:27 Home Medications: Amlodipine [Norvasc*] 10 mg PO DAILY 04/29/23 Aspirin [Aspirin Regimen] 1 tab PO DAILY 04/29/23 Metoprolol Succinate [Toprol Xl*] 25 mg PO BID 04/29/23 Simvastatin 40 mg PO DAILY 04/29/23 hydroCHLOROthiazide [Hydrochlorothiazide] 12.5 mg PO DAILY 04/29/23 Amox/K Clav [Augmentin 600 MG/5 ML Susp*] 7 ml FT BID 10 Days #140 ml 05/07/23 Hydrocodone/APAP Soln [Lortab Solution *] 15 ml FT Q6H PRN 10 Days #600 ml 05/07/23 New Medications: Amox/K Clav [Augmentin 600 MG/5 ML Susp*] 7 ml FT BID 10 Days #140 ml Hydrocodone/APAP Soln [Lortab Solution *] 15 ml FT Q6H PRN 10 Days #600 ml PRN Reason: Pain Scale 5-7 (Moderate) Followup: Nelida Noble MD [Primary Care Provider] -
[2023-05-08] MEDS: ATORVASTATIN 20 MG TAB PO SCH (20:08)
[2023-05-09] MEDS: HYDROCOD 2.5mg-ACETAMIN 108mg/5mL Soln FT PRN (03:25)
[2023-05-09] MEDS: METOPROLOL TAR 25 MG TAB PO SCH (05:42)
[2023-05-09] MEDS: Pantoprazole (granules) 40 MG/BLIST PACKET FT SCH (05:52)
[2023-05-09] MEDS: AMLODIPINE 10 MG TAB PO SCH (09:00)
[2023-05-09] MEDS: AMOX/K CLAV 600 MG/5 ML ORAL SUSP (75 ML BTL) FT SCH (09:00)
[2023-05-09] MEDS: hydroCHLOROthiazide 12.5 MG CAP PO SCH (09:00)
[2023-05-09] MEDS: ENOXAPARIN 40 MG/0.4 ML SQ SCH (09:00)
[2023-05-09] MEDS: JEVITY 1.5 CAL LIQUID 1,000 ML BOT FT SCH (09:00)
[2023-05-09 09:07] VITALS: BP 114/70; TEMP 98.1
[2023-05-09 10:21] VITALS: O2SAT 93
== END 2023-05-09 11:10 | disposition home health service (06) | DRG 11 ==
LOC: OR 09:01 → 3RD-ICU 13:24 → 2ND 05-06 17:45
PROVIDERS: ADMIT Otolaryngology; ATTEND Otolaryngology
PROC: 0DB68ZX Excision of Stomach, Via Natural or Artificial Opening Endoscopic, Diagnostic (ICD-10-PCS; principal; 2023-05-01 10:30)
PROC: 0B110F4 Bypass Trachea to Cutaneous with Tracheostomy Device, Open Approach (ICD-10-PCS; 2023-05-01 10:30)
PROC: 0CBS8ZX Excision of Larynx, Via Natural or Artificial Opening Endoscopic, Diagnostic (ICD-10-PCS; 2023-05-01 10:30)
PROC: 0DB78ZX Excision of Stomach, Pylorus, Via Natural or Artificial Opening Endoscopic, Diagnostic (ICD-10-PCS; 2023-05-01 10:30)
DX: C32.9 Malignant neoplasm of larynx, unspecified (principal); E43 Unspecified severe protein-calorie malnutrition; Z68.1 Body mass index [BMI] 19.9 or less, adult; K56.7 Ileus, unspecified; I10 Essential (primary) hypertension; K44.9 Diaphragmatic hernia without obstruction or gangrene; K29.50 Unspecified chronic gastritis without bleeding; H91.91 Unspecified hearing loss, right ear; E78.00 Pure hypercholesterolemia, unspecified; F17.210 Nicotine dependence, cigarettes, uncomplicated; Z66 Do not resuscitate; Z95.1 Presence of aortocoronary bypass graft; Z98.49 Cataract extraction status, unspecified eye; Z79.82 Long term (current) use of aspirin; Z79.899 Other long term (current) drug therapy
CPT/HCPCS: 36415; 71045; 74230; 80048; 82947; 84134; 85025; 87070; 87184; 87205; 88305; 88312; 92611; 93005; 94010; 97110; 97116; 97161; 97530; J0171; J0690; J1170; J1650; J2270; J2405; J2704; J3010; J7120